=== PATIENT | female | born 1980 ===

== ENCOUNTER 2024-05-04 11:45 | Inpatient (IN) | payer OTHER ==
[~2024-05-04] VITALS: Ht 30.5 cm; Wt 50.8 kg
[2024-05-04 13:11] LABS: PH,URINE 5.5 (5.0-8.0); URINE APPEARANCE Clear; URINE BILIRRUBIN Negative (NEGATIVE); URINE BLOOD Negative; URINE COLOR Yellow; URINE GLUCOSE Negative (NEGATIVE); URINE KETONE Negative (NEGATIVE); URINE LEUKOCYTE Negative; URINE NITRATE Negative; URINE PROTEIN Negative (NEGATIVE); URINE UROBILINOGEN 0.2 E.U./dl
[2024-05-04 13:14] LABS: URINE BACTERIA 72.2 uL (0.0-1933); URINE EPITHELIAL CELLS 2.2 uL (0.0-38.8); URINE RBC 6.7 uL (0.0-20.8)
[2024-05-04 13:17] LABS: URINE WBC 0.9 uL (0.0-23.2)
[2024-05-04 13:19] LABS: PARTIAL THROMBOPLASTIN TIME 26.2 SECONDS (22.0-34.0); PROTHROMBIN TIME 10.9 SECONDS (9.0-11.5)
[2024-05-04] MEDS ORDERED: PEPCID AC20 MG PO (13:56)
[2024-05-04] MEDS ORDERED: PROTONIX40 MG PO (13:56)
[2024-05-04 14:34] LABS: HEMATOCRIT 41.8 % (36.0-45.00); HEMOGLOBIN 14.3 g/dL (12.0-15.00); MEAN CELL VOLUME 96.1 fL (80.00-100.00); MEAN CORPUSCULAR HEMOGLOBIN 32.9 pg (27.00-32.0); MEAN CORPUSCULAR HGB CONC 34.2 g/dl (32.0-36.0); PLATELET COUNT 250 K/uL (150-450); RED BLOOD COUNT 4.35 M/uL (4.00-6.00); RED CELL DISTRIBUTION WIDTH 14.3 % (11.5-14.5)
[2024-05-04 14:52] LABS: ALBUMIN 4.3 gm/dL (3.4-5.0); BILIRUBIN TOTAL 1.4 mg/dL (0.3-1.2); CREATININE SERUM 0.92 mg/dL (0.55-1.02); GFR 66.62; GLOBULINA 3.3 G/DL (2.4-3.5); POTASSIUM 4.2 mEq/L (3.5-5.1); TOTAL PROTEIN 7.6 gm/dL (6.4-8.2)
[2024-05-11] MEDS ORDERED: CEFAZOLIN SODIUM 1,000 MG VIAL ONE (08:40)
[2024-05-11] MEDS ORDERED: POVIDONE-IODINE 118 ML BOTT TOP ONE (08:40)
[2024-05-11] MEDS ORDERED: LIDOCAINE HCL 1%/EPINEPHRINE 20ML VIAL IJ ONE (08:41)
[2024-05-11] MEDS ORDERED: BUPIVACAINE HCL/MPF 0.5% 30ML VIAL ONE (08:41)
[2024-05-11] MEDS ORDERED: ONDANSETRON HCL 2 MG/ML VIAL ONE ×2 (10:40→10:44)
[2024-05-11] MEDS ORDERED: MORPHINE SULFATE 4 MG/ML VIAL IV ONE ×2 (10:50→11:50)
[2024-05-11] MEDS ORDERED: PROMETHAZINE HCL 25 MG/ML AMPUL IV SCH (12:00)
[2024-05-11] MEDS ORDERED: MORPHINE SULFATE 4 MG/ML CARTRIDGE IV SCH (12:00)
[2024-05-11 12:52] VITALS: BP 100/65
[2024-05-11 16:00] VITALS: BP 105/67
[2024-05-11 16:26] LABS: HEMATOCRIT 37.5 % (36.0-45.00); HEMOGLOBIN 12.6 g/dL (12.0-15.00); MEAN CELL VOLUME 96.8 fL (80.00-100.00); MEAN CORPUSCULAR HEMOGLOBIN 32.7 pg (27.00-32.0); MEAN CORPUSCULAR HGB CONC 33.7 g/dl (32.0-36.0); PLATELET COUNT 218 K/uL (150-450); RED BLOOD COUNT 3.87 M/uL (4.00-6.00); RED CELL DISTRIBUTION WIDTH 14.4 % (11.5-14.5)
[2024-05-11 20:33] VITALS: BP 117/68
[2024-05-11 20:55] LABS: HEMATOCRIT 37.4 % (36.0-45.00); HEMOGLOBIN 12.5 g/dL (12.0-15.00); MEAN CELL VOLUME 97.5 fL (80.00-100.00); MEAN CORPUSCULAR HEMOGLOBIN 32.6 pg (27.00-32.0); MEAN CORPUSCULAR HGB CONC 33.4 g/dl (32.0-36.0); PLATELET COUNT 211 K/uL (150-450); RED BLOOD COUNT 3.84 M/uL (4.00-6.00); RED CELL DISTRIBUTION WIDTH 14.5 % (11.5-14.5)
[2024-05-12 00:53] VITALS: BP 113/67
[2024-05-12] MEDS ORDERED: IBUprofen 800 MG TABLET PO SCH (02:00)
[2024-05-12] MEDS ORDERED: SIMETHICONE 125 MG CAPSULE PO SCH (05:00)
[2024-05-12] MEDS ORDERED: POLYETHYLENE GLYCOL 3350 17 GM BLIST.PACK PO SCH (05:00)
[2024-05-12] MEDS ORDERED: GABAPENTIN 300 MG CAPSULE PO SCH (05:00)
[2024-05-12 08:00] VITALS: BP 115/71
[2024-05-12 16:16] VITALS: BP 103/70
[2024-05-12 20:00] VITALS: BP 108/71
[2024-05-12] MEDS ORDERED: KETOROLAC TROMETHAMINE 60 MG VIAL IM ONE (20:15)
[2024-05-13 00:37] VITALS: BP 95/60
[2024-05-13] MEDS ORDERED: GABAPENTIN300 MG PO (06:37)
[2024-05-13] MEDS ORDERED: POLY119PG PO (06:38)
[2024-05-13] MEDS ORDERED: SIMETHICONE125 M1 PO (06:38)
[2024-05-13] MEDS ORDERED: KETO10TA2 PO (06:39)
[2024-05-13 08:00] VITALS: BP 94/63
== END 2024-05-13 09:41 | disposition home or self-care (01) | DRG 743 ==
LOC: O/R 05-11 06:05 → OB/GYN 05-11 06:05 → SURH 05-11 07:00 → OB/GYN 05-11 12:11
PROVIDERS: ADMIT Obstetrics & Gynecology; ATTEND Obstetrics & Gynecology
PROC: 0UT70ZZ Resection of Bilateral Fallopian Tubes, Open Approach (ICD-10-PCS; 2024-05-11)
PROC: 0UT90ZZ Resection of Uterus, Open Approach (ICD-10-PCS; principal; 2024-05-11 07:00)
DX: D25.0 Submucous leiomyoma of uterus (principal); N80.03 Adenomyosis of the uterus